=== PATIENT | male | born 1985 | race African-American/Black ===

== ENCOUNTER 2024-08-20 12:49 | Emergency (ER) | payer MEDICARE, MEDICAID ==
[~2024-08-20] VITALS: Ht 165.1 cm; Wt 61.0 kg
[2024-08-20 13:02] VITALS: O2SAT 100
[2024-08-20] MEDS ORDERED: RISP4TAB31 MT (14:58)
[2024-08-20 15:07] VITALS: BP 125/70; PULSE 84; RESP 16; TEMP 36.66960; O2SAT 100
== END 2024-08-20 15:37 | disposition home or self-care (01) ==
LOC: ER 12:49
DX: Z76.0 Encounter for issue of repeat prescription (principal)
CPT/HCPCS: 99281

== ENCOUNTER 2024-12-31 10:23 | Emergency (ER) | payer MEDICARE, MEDICAID ==
[~2024-12-31] VITALS: Ht 165.1 cm; Wt 66.0 kg
[~2024-12-31 10:23] MED LIST: RISP4TAB31 MT
[2024-12-31 11:03] VITALS: O2SAT 98
[2024-12-31] MEDS ORDERED: BO1 TP (11:18)
[2024-12-31] MEDS ORDERED: CEPH500C2 MT (11:18)
[2024-12-31] MEDS: BACITRACIN ZINC OINT UDPKT TOP ONE (11:30)
[2024-12-31 12:41] VITALS: BP 116/78; PULSE 82; RESP 16; TEMP 36.7; O2SAT 98
== END 2024-12-31 12:42 | disposition home or self-care (01) ==
LOC: ER 10:23
DX: T23.102A Burn of first degree of left hand, unspecified site, initial encounter (principal); T23.101A Burn of first degree of right hand, unspecified site, initial encounter; F20.0 Paranoid schizophrenia; Z79.899 Other long term (current) drug therapy; X58.XXXA Exposure to other specified factors, initial encounter; Y93.89 Activity, other specified; Y92.89 Other specified places as the place of occurrence of the external cause; Y99.8 Other external cause status
CPT/HCPCS: 16020; 99283